=== PATIENT | male | born 1940 | race Two or more races ===

== ENCOUNTER 2016-11-12 17:36 | Emergency (ER) | payer OTHER ==
[~2016-11-12] VITALS: Ht 170.2 cm; Wt 65.8 kg
[2016-11-13] MEDS ORDERED: ONDANSETRON ODT 4 MG TAB PO ONE (02:30)
[2016-11-13] MEDS ORDERED: MORPHINE SULFATE 4 MG/ML SYRG IM ONE (02:30)
[2016-11-13 04:45] VITALS: BP 143/66
== END 2016-11-13 05:36 | disposition home or self-care (01) ==
LOC: ER 17:47
DX: S93.401A Sprain of unspecified ligament of right ankle, initial encounter (principal); S70.01XA Contusion of right hip, initial encounter; S70.11XA Contusion of right thigh, initial encounter; S09.90XA Unspecified injury of head, initial encounter; W22.8XXA Striking against or struck by other objects, initial encounter; Y93.89 Activity, other specified; Y99.8 Other external cause status; Y92.89 Other specified places as the place of occurrence of the external cause
CPT/HCPCS: 70450; 72125; 73502; 73562; 73590; 73610; 73630; 96372; 99284; J2270; Q0162

== ENCOUNTER 2023-12-04 12:23 | Emergency (ER) | payer OTHER ==
[~2023-12-04] VITALS: Ht 170.2 cm; Wt 61.5 kg
[2023-12-04 13:22] VITALS: BP 142/73; PULSE 98; RESP 18; TEMP 99.2; O2SAT 97
[2023-12-04] MEDS: HYDROcodone-ACET 5/325MG TAB PO ONE (14:02)
[2023-12-04] MEDS ORDERED: TRAM-626 PO (15:01)
== END 2023-12-04 15:24 | disposition home or self-care (01) ==
LOC: ER 12:23
DX: M51.37 Other intervertebral disc degeneration, lumbosacral region (principal); M54.16 Radiculopathy, lumbar region; G89.29 Other chronic pain; M54.50 Low back pain, unspecified; I10 Essential (primary) hypertension; Z86.73 Personal history of transient ischemic attack (TIA), and cerebral infarction without residual deficits
CPT/HCPCS: 72131